=== PATIENT | female | born 1960 | race Hispanic/Latino ===

== ENCOUNTER 2025-01-26 13:45 | Emergency (ER) | payer MEDICARE, BC ==
[2025-01-26 16:19] LABS: Glucose, Urine (Dipstick) 250 mg/dL (Negative); Leukocyte Negative (Negative); Protein, Urine (Dipstick) 30 mg/dl (Neg-Trace); Specific Gravity, Urine 1.005 (1.005-1.030)
[2025-01-26 16:22] LABS: #Basophils 0.04 10x3/uL (0.0-0.2); #Eosinophils 0.11 10x3/uL (0.0-0.5); #Monocytes 0.77 10x3/uL (0.0-1.1); #Neutrophils 7.79 10x3/uL (1.5-8.4); %Basophils 0.4 % (0.0-2.0); %Eosinophils 1.1 % (0.0-6.0); %Lymphocytes 13.3 % (18.0-47.0); %Monocytes 7.6 % (0.0-10.0); %Neutrophils 77.3 % (40.0-75.0); Hematocrit 30.2 % (34.9-44.5); Hemoglobin 9.5 g/dL (12.0-15.5); Mean Corpuscular Hemoglobin 27.1 pg (27.0-33.0); Mean Corpuscular Volume 86.0 fL (81.6-98.3); Platelet Count 241 10x3/uL (150-450); Red Blood Cell (RBC) Count 3.51 10x6/uL (3.90-5.03); White Blood Cell (WBC) Count 10.08 10x3/uL (3.5-10.5)
[2025-01-26 16:43] LABS: ALT (SGPT) 145 U/L (Less than 34); AST (SGOT) 96 U/L (11-34); Albumin 3.6 g/dL (3.1-4.5); Alkaline Phosphatase 193 U/L (40-110); Anion Gap 15 mmol/L (10-20); BUN (Urea Nitrogen) 51 mg/dL (9.8-20.1); Bilirubin, Total 0.5 mg/dL (0.3-1.2); Calc. Creatinine Clearance 0 mL/min (70-130); Calcium 9.0 mg/dL (7.8-10.44); Carbon Dioxide 20 mmol/L (23-31); Chloride 108 mmol/L (98-107); Globulin 3.3 g/dL (2.4-3.5); Glucose 98 mg/dL (80-115); Potassium 4.6 mmol/L (3.5-5.1); Sodium 138 mmol/L (136-145)
[2025-01-26 16:59] LABS: CAUTI Indications for Culture Alt mental st,lethar; RBC/HPF 0-3 HPF (0-3); WBC/HPF 0-3 HPF (0-3)
[2025-01-26 17:00] LABS: Bacteria/HPF 1+ HPF (None Seen); Urine Culture Reflex No No
[2025-01-26 18:03] LABS: Troponin I 0.017 ng/mL (< 0.028)
[2025-01-26] MEDS ORDERED: Furosemide 40 MG (4 mL) VIAL ONE (20:03)
[2025-01-26] MEDS ORDERED: hydrALAZINE 20 MG/ML VIAL ONE (20:03)
== END 2025-01-26 21:50 | disposition short-term general hospital (02) ==
LOC: CSHERS 13:45
DX: I11.0 Hypertensive heart disease with heart failure (principal); I50.9 Heart failure, unspecified; N17.9 Acute kidney failure, unspecified; R60.0 Localized edema; R06.02 Shortness of breath; E11.9 Type 2 diabetes mellitus without complications; Z79.84 Long term (current) use of oral hypoglycemic drugs; Z79.899 Other long term (current) drug therapy
CPT/HCPCS: 71045; 80053; 81001; 83880; 84484; 85025; 85379; 93005; 93970; J1940; 36415; 96374; J0360